=== PATIENT | female | born 1985 | race Asian ===

== ENCOUNTER 2018-08-03 12:42 | Emergency (ER) | payer MEDICAID ==
[2018-08-03] MEDS ORDERED: ONDANSETRON 4 MG/2 ML VIAL IVP ONE (13:40)
[2018-08-03] MEDS ORDERED: fentaNYL 100 MCG/2 ML INJ IVP ONE (13:40)
[2018-08-03] MEDS ORDERED: NS 1,000 ML IV ONE (13:40)
[2018-08-03] MEDS ORDERED: FAMOTIDINE 20 MG/NACL 50 ML IV ONE (13:40)
--- NOTE | 2018-08-03 13:44 | EDPHY ---
H & P Stated Complaint: c/o abd pain cramping x 4wks, pain worsening today, no vomiting/diarrhea Time Seen by Provider: 08/03/18 13:20 HPI/ROS: CHIEF COMPLAINT: Abdominal pain HISTORY OF PRESENT ILLNESS: This is a 33-year-old female G? P1 SAB? who presents concerned about midepigastric abdominal pain. She reports right upper quadrant abdominal pain that she 1st noticed about a month ago. She has seen a primary care provider at [facility] for this problem and had a right upper quadrant ultrasound performed recently which was reportedly normal. Right upper quadrant plain seems to have improved in the last couple of days. She presents today with midepigastric pain that she describes as severe burning pain that occurs on and off and lasts for hours at a time. She does not think that it is related to eating, but is not sure. She drinks 1-2 alcoholic beverages weekly. No history of abdominal surgery. No significant NSAID use. REVIEW OF SYSTEMS: A ten system review of systems was performed and is negative with the exception of the items mentioned in the HPI. Past medical history: Negative Past surgical history: Negative Family history: Mother with breast cancer Social history: She does not use tobacco products. She drinks 1-2 alcoholic beverages weekly. She does not use illicit drugs. General Appearance: Alert. Vital signs reviewed. Eyes: Pupils equal and round, no conjunctival injection, no discharge. Anicteric. ENT, Mouth: Mucous membranes are dry, no oropharyngeal erythema or edema. Neck: No lymphadenopathy, supple. Respiratory: Lungs are clear to auscultation; no wheezes, rales, or rhonchi. Cardiovascular: Regular rate and rhythm; no murmur, rub, or gallop. Gastrointestinal: Abdomen is soft and mildly diffusely tender with moderate tenderness in the midepigastrium, no guarding, no masses or organomegaly, bowel sounds normal. Skin: Warm and dry, no rashes on exposed skin, normal color. Back: Nontender to palpation over the thoracolumbar spine. No CVAT. Extremities: No lower extremity edema, no calf tenderness or swelling. Neurological: Alert and oriented. Moving all four extremities easily and equally. Psychiatric: Normal affect. - Personal History LMP (Females 10-55): Now - Medical/Surgical History Hx Asthma: No Hx Chronic Respiratory Disease: No Hx Diabetes: No Hx Cardiac Disease: No Hx Renal Disease: No Hx Cirrhosis: No Hx Alcoholism: No Hx HIV/AIDS: No Hx Splenectomy or Spleen Trauma: No Other PMH: HX: DENIES - Social History Smoking Status: Never smoked Constitutional: Initial Vital Signs Heart Rate 69 08/03/18 12:55 Respiratory Rate 16 08/03/18 12:55 Blood Pressure 113/80 08/03/18 12:55 O2 Sat (%) 99 08/03/18 12:55 O2 Delivery Mode Room Air Allergies/Adverse Reactions: No Known Allergies Allergy (Verified 08/03/18 12:59) Home Medications: Medication Instructions Recorded Hydrocodone/APAP 5/325 [[place] 1 - 2 tab PO Q4 PRN #10 tab 08/03/18 5/325 (RX)] Medical Decision Making ED Course/Re-evaluation: Midepigastric pain on and off for past few weeks. Labs WNL--CBC, BMP, LFTs, lipase, test negative. She received one liter NS IV, zofran 4 mg IV, Pepcid IV, and fentanyl IV. With these measures she had some pain relief, not complete relief. No vomiting or diarrhea in ED. Serial abdominal exams all without peritoneal signs. She is being discharged with GI referral and H2 ester instructions. Danger signs reviewed. Recent studies and today's labs rule against cholecystitis, pancreatitis. Gastritis, GERD still in differential. Nothing to suggest perforated viscous. Location not typical for appendicitis. No urinary symptoms and I think UTI highly unlikely. Differential Diagnosis: Abdominal pain including but not limited to appendicitis, cholecystitis, gastritis and urinary tract infection. - Data Points Laboratory Results: Laboratory Results 08/03/18 14:15 08/03/18 14:15 Medications Given: Discontinued Medications Fentanyl (Sublimaze) 75 mcg IVP EDNOW ONE Stop: 08/03/18 13:41 Last Admin: 08/03/18 14:07 Dose: 25 mcg Sodium Chloride (Ns) 1,000 mls @ 0 mls/hr IV EDNOW ONE; Wide Open PRN Reason: Protocol Stop: 08/03/18 13:41 Last Admin: 08/03/18 13:55 Dose: 1,000 mls Famotidine/Sodium Chloride (Pepcid 20 Mg (Premix)) 50 mls @ 200 mls/hr IV EDNOW ONE Stop: 08/03/18 13:54 Last Admin: 08/03/18 14:05 Dose: 50 mls Ondansetron HCl (Zofran) 4 mg IVP EDNOW ONE Stop: 08/03/18 13:41 Last Admin: 08/03/18 14:07 Dose: 4 mg Departure - Departure Disposition: Home, Routine, Self-Care Clinical Impression: Abdominal pain Qualifiers: Abdominal location: epigastric Qualified Code(s): R10.13 - Epigastric pain Condition: Good Instructions: Hydrocodone/Acetaminophen (By mouth), Acute Abdominal Pain (ED) Additional Instructions: As you know, it is not clear what is causing your abdominal pain. I recommend that you follow[facility]up at [facility] and also with a water quality technician. I am providing you with a referral to Dr. Ang. Let the office know that you are being referred by the emergency department. It is fine for you to see any of the gastroenterology providers. I recommend trying 1 of the [id number] acid blocking medications, such as Pepcid. Buy some Maalox or Mylanta too and use this for acute episodes. If you worsen in any way--fever, vomiting, diarrhea, severe persistent abdominal pain, any new or concerning symptoms--please be re-evaluated. Referrals: Josefina Bautista PA [Primary Care Provider] - As per Instructions Andrés Ang MD [Medical Doctor] - As per Instructions Stand Alone Forms: Narcotic Guidelines Prescriptions: Hydrocodone/APAP 5/325 [[place] 5/325 (RX)] 1 - 2 tab PO Q4 PRN #10 tab PRN Reason: pain
[2018-08-03 14:27] LABS: PLATELET COUNT 237 10^3/uL (150-400)
[2018-08-03 15:07] VITALS: BP 114/63
== END 2018-08-03 15:16 | disposition home or self-care (01) ==
DX: R10.13 Epigastric pain (principal); E86.9 Volume depletion, unspecified
CPT/HCPCS: 96374; J2405; J3010

== ENCOUNTER 2018-11-01 21:32 | Emergency (ER) | payer MEDICAID | END 2018-11-01 22:32 | disposition home or self-care (01) ==